=== PATIENT | female | born 1950 | race Caucasian/White ===

== ENCOUNTER 2017-09-04 22:58 | Emergency (ER) | payer BC, MEDICARE ==
--- NOTE | 2017-09-05 08:48 | CT ---
PRELIMINARY REPORT/[facility]/EMERGENTY AFTER-HOURS PROCEDURE CT Maxillofacial Without Intravenous Contrast CLINICAL HISTORY: 67 years old, female; Injury or trauma; Fall; Initial encounter; Abrasion; Jaw; Bilateral; Patient HX : Er 1; Fall; Tripped in yard, hit chin on sidewalk, bruising and swelling. TECHNIQUE: Axial computed tomography images of the face without intravenous contrast. Coronal and sagittal reformatted images were created and reviewed. COMPARISON: No relevant prior studies available. FINDINGS: Bones/joints: No acute fracture. Soft tissues: Unremarkable. Orbits: Unremarkable. Sinuses: No acute sinusitis. IMPRESSION: No evidence of acute fracture Thank you for allowing us to participate in the care of your patient. Dictated and Authenticated by: Noe Tomas MD 09/05/2017 1:23 AM Central Time ([place] & [place]) FINAL REPORT CT OF THE FACE WITHOUT CONTRAST EMERGENT AFTER HOURS EXAM: FINDINGS/IMPRESSION: I agree with the findings and impression given in the preliminary report per [facility] physician. No tatyana dence of facial fracture.
== END 2017-09-05 01:40 | disposition home or self-care (01) ==
LOC: ERS 22:58
DX: S00.83XA Contusion of other part of head, initial encounter (principal); E03.9 Hypothyroidism, unspecified; E78.5 Hyperlipidemia, unspecified; I10 Essential (primary) hypertension; F32.9 Major depressive disorder, single episode, unspecified; Z79.82 Long term (current) use of aspirin; Z79.899 Other long term (current) drug therapy; W01.0XXA Fall on same level from slipping, tripping and stumbling without subsequent striking against object, initial encounter
CPT/HCPCS: 70486

== ENCOUNTER 2018-04-24 09:16 | Outpatient (CLI) | payer BC, MEDICARE ==
--- NOTE | 2018-04-24 11:25 | BD ---
DEXA BONE DENSITOMETRY: (Dual energy X-ray Absorptiometry) DATE: 04/24/2018 HISTORY: A 67-year-old postmenopausal white female for followup of age-related osteoporosis screening examinat ion. Height 61 inches. Weight 132 lbs. Age of menopause 53 years. COMPARISON: Most recent previous: 04/24/2018 Baseline: 03/31/2006 FINDINGS: The bone mineral density (BMD) is given in grams per square centimeter (g/cm2): LUMBAR SPINE: BMD(g/cm2) T-score Z-score L1: 0.881 -1.0 0.6 L2: 0.894 -1.2 0.6 L3: 0.842 -2.2 -0.3 L4: 0.910 -1.4 0.6 Total: 0.882 -1.5 0.3 Change in BMD compared to most recent previous DEXA: +2.4% Change in BMD compared to baseline DEXA: +5.7% HIP: Femoral neck: 0.555 -2.7 -1.1 Total: 0.839 -0.8 0.4 Change in BMD compared to most recent previous DEXA: +4.3% Change in BMD compared to baseline DEXA: +12.8% IMPRESSION: 1) The mean bone mineral density of the lumbar spine is osteopenic. Fracture risk is increased. 2) The bone mineral density of the femoral neck is osteoporotic. Fracture risk is high. JAMIE Nascimento POS: [facility]
--- NOTE | 2018-04-24 14:59 | MMO ---
MAMMOGRAM FINDINGS: There are scattered fibroglandular densities. There are vascular calcifications seen in both breasts. There are no suspicious masses, calcifications or areas of architectural distortion. IMPRESSION: CALCIFICATIONS IN BOTH BREASTS ARE BENIGN. A ROUTINE FOLLOW-UP MAMMOGRAM IN 1 YEAR IS RECOMMENDED. ACR BI-RADS Category 2 - Benign finding
== END 2018-04-24 09:17 | disposition home or self-care (01) ==
LOC: BICMAMMO 09:16
PROVIDERS: ATTEND Internal Medicine
DX: Z12.31 Encounter for screening mammogram for malignant neoplasm of breast (principal); Z78.0 Asymptomatic menopausal state; R92.1 Mammographic calcification found on diagnostic imaging of breast; M81.0 Age-related osteoporosis without current pathological fracture; M85.88 Other specified disorders of bone density and structure, other site
CPT/HCPCS: 77063; 77067; 77080

== ENCOUNTER 2018-08-24 12:58 | Outpatient (CLI) | payer BC, MEDICARE ==
--- NOTE | 2018-08-24 14:19 | ULT ---
BILATERAL RENAL ULTRASOUND: INDICATION: Chronic renal disease stage III. FINDINGS: No overt hydronephrosis or suspicious renal lesion bilaterally. The demonstrated right renal length is 8.7 cm and the left renal length 9 cm. The urinary bladder is grossly unremarkable. Bilateral ur eteral jets are demonstrated by Doppler assessment. IMPRESSION: No overt hydronephrosis or suspicious renal lesion, bilaterally. POS: [facility]
== END 2018-08-24 12:59 | disposition home or self-care (01) ==
LOC: BICULT 12:58
PROVIDERS: ATTEND Internal Medicine
DX: N18.3 Chronic kidney disease, stage 3 (moderate) (principal)
CPT/HCPCS: 76770

== ENCOUNTER 2020-08-07 10:11 | Outpatient (CLI) | payer BC | END 2020-08-07 10:12 | disposition home or self-care (01) | LOC: BICMAMMO 10:11 | PROVIDERS: ATTEND Internal Medicine | DX: Z12.31 Encounter for screening mammogram for malignant neoplasm of breast (principal); M81.0 Age-related osteoporosis without current pathological fracture | CPT/HCPCS: 77063; 77067; 77080 ==

== ENCOUNTER 2021-09-17 07:58 | Outpatient (CLI) | payer BC | END 2021-09-17 07:59 | disposition home or self-care (01) | LOC: BICMAMMO 07:58 | PROVIDERS: ATTEND Internal Medicine | DX: Z12.31 Encounter for screening mammogram for malignant neoplasm of breast (principal) | CPT/HCPCS: 77063; 77067 ==

== ENCOUNTER 2022-10-17 07:53 | Outpatient (CLI) | payer BC | END 2022-10-17 07:54 | disposition home or self-care (01) | LOC: BICMAMMO 07:53 | PROVIDERS: ATTEND Internal Medicine | DX: Z12.31 Encounter for screening mammogram for malignant neoplasm of breast (principal); M81.0 Age-related osteoporosis without current pathological fracture | CPT/HCPCS: 77063; 77067; 77080 ==